=== PATIENT | male | born 1995 | race Caucasian/White ===

== ENCOUNTER 2020-05-17 19:00 | Emergency (ER) | payer OTHER ==
[~2020-05-17] VITALS: Ht 170.2 cm; Wt 99.8 kg
[2020-05-17 19:11] VITALS: Ht 170.2 cm; Wt 99.8 kg
[2020-05-17 22:12] VITALS: BP 119/80
== END 2020-05-17 22:12 | disposition home or self-care (01) ==
LOC: ED 19:00
DX: H81.10 Benign paroxysmal vertigo, unspecified ear (principal); Z88.2 Allergy status to sulfonamides
CPT/HCPCS: J2765; J8597